=== PATIENT | male | born 1960 | race Caucasian/White ===

== ENCOUNTER → 2021-03-01 | Outpatient (REF) ==
--- NOTE | 2021-03-01 14:49 | REP ---
INDICATION: C SPINE SURGERY. Lumbar spine pain. COMPARISON: None. TECHNIQUE: Three views of the lumbar spine are provided. FINDINGS: Lumbar vertebral body heights are preserved. Alignment is normal. There is disc space narrowing and discogenic spurring to some degree at each lumbar level, most pronounced at L5-5 S1 and L4-5. Pedicles and posterior elements are intact. Psoas margins are symmetric. There is osteoarthritic facet hypertrophy bilaterally at L5-S1 and L4-5. There is no evidence of spondylolysis or spondylolisthesis. IMPRESSION: Degenerative spondylosis changes. No acute bony abnormality. <Electronically signed by Ashvin Ireland > 03/01/21 [id number]
== END ==
LOC: M PLAIMG 12:49
PROVIDERS: ATTEND Internal Medicine
DX: M47.896 Other spondylosis, lumbar region (principal)

== ENCOUNTER → 2023-05-22 | Outpatient (REF) | payer BC | LOC: M SFHCDERM 17:44 | PROVIDERS: ATTEND Dermatology | DX: D23.9 Other benign neoplasm of skin, unspecified (principal) ==